=== PATIENT | female | born 1995 | race African-American/Black ===

== ENCOUNTER 2022-08-14 18:13 | Emergency (ER) | payer BC, SELFPAY ==
[2022-08-14] MEDS ORDERED: Ondansetron PF 4 MG/2 ML Vial ONE (19:34)
[2022-08-14 19:45] LABS: #Eosinphils 0.1 10x3/uL (0.0-0.5); #Monocytes 0.7 10x3/uL (0.0-1.1); #Neutrophils 9.5 10x3/uL (1.5-8.4); %Basophils 0.2 % (0.0-2.0); %Eosinophils 0.5 % (0.0-6.0); %Lymphocytes 15.2 % (18.0-47.0); %Monocytes 5.8 % (0.0-10.0); %Neutrophils 77.9 % (40.0-75.0); Hemoglobin 12.5 g/dL (12.0-15.5); Mean Corpuscular HGB CONC 34.6 g/dL (32.0-36.0); Mean Corpuscular Hemoglobin 31.3 pg (27.0-33.0); Mean Corpuscular Volume 90.5 fl (81.6-98.3); Mean Platelet Volume 10.6 fl (7.4-10.4); Platelet Count 277 10x3/uL (150-450); RBC Distribution Width 12.6 % (11.5-14.5); Red Blood Cell (RBC) Count 3.99 10x6/uL (3.90-5.03); White Blood Cell (WBC) Count 12.2 10x3/uL (3.5-10.5)
[2022-08-14 19:56] LABS: Actual Bicarbonate (HCO3v) 17 mEq/L (22-28); Base Excess -5.8 mEq/L (-2.0 to +3.0); Calcium, Ionized (venous) 1.18 mmol/L (1.16-1.32); Chloride (VBG) 106 mmol/L (98-106); Critical Notified By: CP.PH; Hemoglobin (Hb) 13.4 g/dL (11.7-15.5); Potassium (VBG) 3.67 mmol/L (3.70-5.30); Puncture Site Other Site; Sodium 135.6 mmol/L (133-146); pH (venous) 7.41 (7.32-7.43)
[2022-08-14 19:57] LABS: Bilirubin 1+ (Negative); Blood, Urine Negative (Negative); Glucose, Urine (Dipstick) Normal (Negative); Ketone, Urine 150 mg/dL (Negative); Leukocyte 25 (Negative); Nitrite Negative (Negative); Protein, Urine (Dipstick) 30 mg/dl (Neg-Trace)
[2022-08-14 19:59] LABS: Clarity Hazy (Clear)
[2022-08-14 20:04] LABS: ALT (SGPT) 20 U/L (8-55); AST (SGOT) 23 U/L (5-34); Albumin 4.3 g/dL (3.5-5.0); Alkaline Phosphatase 47 U/L (40-110); Anion Gap 18 mmol/L (10-20); BUN (Urea Nitrogen) 7 mg/dL (7.0-18.7); Bilirubin, Total 1.1 mg/dL (0.2-1.2); Calc. Creatinine Clearance 0 mL/min (70-130); Calcium 9.8 mg/dL (7.8-10.44); Carbon Dioxide 18 mmol/L (22-29); Chloride 106 mmol/L (98-107); Estimated GFR 94; Globulin 3.5 g/dL (2.4-3.5); Glucose 82 mg/dL (70-105); Lipase 49 U/L (8-78); Potassium 3.7 mmol/L (3.5-5.1); Protein, Total 7.8 g/dL (6.0-8.3); Sodium 138 mmol/L (136-145)
[2022-08-14 20:26] LABS: RBC/HPF 0-3 HPF (0-3)
[2022-08-14 20:27] LABS: Bacteria/HPF 2+ HPF (None Seen); Mucous/LPF 3+ LPF (<2+)
== END 2022-08-14 22:52 | disposition short-term general hospital (02) ==
LOC: CSHERS 18:13
DX: O21.0 Mild hyperemesis gravidarum (principal); Z3A.17 17 weeks gestation of pregnancy
CPT/HCPCS: 80053; 81003; 81015; 82010; 82805; 83690; 85025; 96361; 96374; J2405